=== PATIENT | female | born 1940 ===

== ENCOUNTER 2021-08-12 07:36 | Day surgery (SDC) | payer OTHER ==
[~2021-08-12 07:36] MED LIST: ADULT LOW DOSE81 M1 PO; ALENDRONATE SODI5 MG PO; ATORVASTATIN CA40 MG PO; GABAPEN PO; GLUMETZA500 MG PO; SYNTHROID88 MCG PO; ZESTRIL5 MG PO
== END 2021-08-12 17:15 | disposition home or self-care (01) ==
LOC: CIR.AMB 07:36
PROVIDERS: ATTEND Colon & Rectal Surgery
DX: R15.9 Full incontinence of feces (principal); R32 Unspecified urinary incontinence; Z20.822 Contact with and (suspected) exposure to COVID-19; I10 Essential (primary) hypertension
CPT/HCPCS: 64581; 64590; 95972; C1767; C1778

== ENCOUNTER 2021-08-12 08:26 | Outpatient (CLI) | payer OTHER | END 2021-08-12 08:27 | disposition home or self-care (01) | LOC: LAB 08:26 | PROVIDERS: ATTEND Anesthesiology | DX: Z20.822 Contact with and (suspected) exposure to COVID-19 (principal) ==